=== PATIENT | male | born 1990 ===

== ENCOUNTER 2017-08-29 14:37 | Emergency (ER) | payer SELFPAY ==
[2017-08-29 15:08] VITALS: O2SAT 99
[2017-08-29 16:51] LABS: INFLUENZA A B POS FOR INFLUENZA A (NEGATIVE)
--- NOTE | 2017-08-29 17:21 | C.PDOC ---
History Of Present Illness 26 y/o male presents to the ED complaining of nasal congestion, sore throat, cough, fatigue, and diffuse myalgias, onset 2 days ago. + sick contact in the patients son. Patient is not taking any medications for symptom relief. Afebrile upon arrival. Time Seen by Provider: 08/29/17 15:47 Chief Complaint (Nursing): Fever History Per: Patient History/Exam Limitations: no limitations Onset/Duration Of Symptoms: Days (x3) Current Symptoms Are (Timing): Still Present Location Of Pain: Throat, Diffuse Myalgias Sick Contacts (Context): Family Member(s) Past Medical History Reviewed: Historical Data, Nursing Documentation, Vital Signs Vital Signs: Last Vital Signs Temp 99.0 F 08/29/17 17:41 Pulse 98 H 08/29/17 17:41 Resp 18 08/29/17 17:41 BP 133/78 08/29/17 17:41 Pulse Ox 99 08/30/17 21:55 - Medical History PMH: No Chronic Diseases Surgical History: No Surg Hx Family History: States: No Known Family Hx - Social History Hx Tobacco Use: No Hx Alcohol Use: No Hx Substance Use: No - Immunization History Hx Tetanus Toxoid Vaccination: No Hx Influenza Vaccination: No Hx Pneumococcal Vaccination: No Review Of Systems Except As Marked, All Systems Reviewed And Found Negative. Constitutional: Positive for: Fever, Malaise, Other (bodyaches) ENT: Positive for: Nose Congestion, Throat Pain Cardiovascular: Negative for: Chest Pain Respiratory: Positive for: Cough. Negative for: Shortness of Breath Gastrointestinal: Negative for: Vomiting, Diarrhea Physical Exam - Physical Exam Appears: Non-toxic, No Acute Distress Skin: Normal Color, Warm, Dry Head: Atraumatic, Normacephalic Eye(s): bilateral: Normal Inspection, PERRL, EOMI Ear(s): Bilateral: Normal Nose: Normal Oral Mucosa: Moist Throat: Normal, No Erythema, No Exudate Neck: Normal ROM, Supple Chest: Symmetrical Cardiovascular: Rhythm Regular, No Murmur Respiratory: Normal Breath Sounds, No Rales, No Rhonchi, No Wheezing Neurological/Psych: Oriented x3, Normal Speech ED Course And Treatment O2 Sat by Pulse Oximetry: 99 (RA) Pulse Ox Interpretation: Normal - Other Rad CXR X-Ray: Viewed By Me, Read By Radiologist Interpretation: FINDINGS: LINES AND TUBES: None. LUNG AND PLEURA: The lungs are well inflated and clear. HEART AND MEDIASTINUM: The heart is not enlarged. The hilar and mediastinal contours are within normal limits. SKELETAL STRUCTURES: The bony structures are within normal limits for the patient's age. VISUALIZED UPPER ABDOMEN: Normal. OTHER FINDINGS: None. IMPRESSION: No active pulmonary disease. Progress Note: Ordered flu swab, rapid strep, throat culture, and chest x-ray. Patient given Motrin PO. CXR preliminary read is normal. Labs reviewed, + flu A. Patient treated with Tamiflu in the ED. Disposition - Disposition Disposition: HOME/ ROUTINE Disposition Time: 17:26 Condition: STABLE Additional Instructions: Follow up with your PMD within 1-2 days. Return to ED if feel worse. Prescriptions: Brompheniramine/Pseudoephed/Dm [Bromfed Dm Cough 118 ml] 10 ml PO Q4 #300 ml Ibuprofen [Motrin Tab] 600 mg PO Q8 #30 tab Oseltamivir [Tamiflu] 75 mg PO BID #9 cap Instructions: Flu, Adult (DC) Forms: [employer] (K[place]akh) Print Language: [place] CITIZ[place] - Clinical Impression Clinical Impression: Influenza A - PA / [employer] / Resident Statement MD/DO has reviewed & agrees with the documentation as recorded. - Scribe Statement The provider has reviewed the documentation as recorded by the Scribe (Vivi Castro) All medical record entries made by the Scribe were at my direction and personally dictated by me. I have reviewed the chart and agree that the record accurately reflects my personal performance of the history, physical exam, medical decision making, and the department course for this patient. I have also personally directed, reviewed, and agree with the discharge instructions and disposition.
[2017-08-29 17:51] VITALS: BP 133/78; PULSE 98; RESP 18; TEMP 99
== END 2017-08-29 17:41 | disposition home or self-care (01) ==
LOC: C.ER 14:37
DX: J09.X2 Influenza due to identified novel influenza A virus with other respiratory manifestations (principal)